=== PATIENT | male | born 1940 | race Caucasian/White ===

== ENCOUNTER → 2021-04-17 | Day surgery (SDC) | payer MEDICARE, OTHER ==
[~2021-04-17] MED LIST: ACETAMINOPHEN500 M1 PO; ACYCLOVIR400 MG PO; COLACE100 MG PO; FRANKINSENSE PO; MELATONIN10 M2 PO; MOTRIN600 MG PO; OXY-IR 5MG5 MG PO; TAMSULOSIN HCL0.4 MG PO; TRAMADOL HCL50 MG PO; VIT B 12 PO; VIT D3 PO; [UNRECOGNIZED DRUG - OTHER] PO
== END | disposition home or self-care (01) ==
LOC: FAS 08:36
DX: C18.9 Malignant neoplasm of colon, unspecified (principal); D12.8 Benign neoplasm of rectum; D12.3 Benign neoplasm of transverse colon; D12.6 Benign neoplasm of colon, unspecified; K57.30 Diverticulosis of large intestine without perforation or abscess without bleeding; K29.80 Duodenitis without bleeding; K64.8 Other hemorrhoids; K64.4 Residual hemorrhoidal skin tags; K44.9 Diaphragmatic hernia without obstruction or gangrene; D50.9 Iron deficiency anemia, unspecified; M19.90 Unspecified osteoarthritis, unspecified site; G47.00 Insomnia, unspecified; F17.210 Nicotine dependence, cigarettes, uncomplicated; Z85.46 Personal history of malignant neoplasm of prostate; Z79.899 Other long term (current) drug therapy
CPT/HCPCS: 88305; J2704; J7120

== ENCOUNTER 2021-05-24 06:29 | Inpatient (IN) | payer MEDICARE, OTHER ==
[~2021-05-24] VITALS: Ht 180 cm; Wt 77.6 kg
[~2021-05-24 06:29] MED LIST changes: -ACETAMINOPHEN500 M1 PO; -COLACE100 MG PO; -FRANKINSENSE PO; -MOTRIN600 MG PO; -OXY-IR 5MG5 MG PO; -TRAMADOL HCL50 MG PO; -[UNRECOGNIZED DRUG - OTHER] PO
[2021-05-24] MEDS ORDERED: TRAMADOL HCL50 MG PO (06:57)
[2021-05-24] MEDS ORDERED: [UNRECOGNIZED DRUG - OTHER] PO (06:58)
[2021-05-24 07:23] LABS: HCT 41.4 % (42.0-52.0); HGB 13.6 g/dl (13.2-18.0); MCHC 32.9 g/dL (32.0-36.0); MCV 91.4 fL (78.0-100.0); MPV 9.1 fL (6.0-9.5); RBC 4.53 M/uL (4.70-6.00); RDW 20.3 % (11.5-14.0); WBC 9.3 K/uL (4.0-10.5)
[2021-05-24 07:45] LABS: ALBUMIN 3.9 g/dL (3.4-5.0); BILIRUBIN - TOTAL 0.6 mg/dL (0.2-1.0); BUN/CREAT RATIO (CALC) 14.7 RATIO; CREATININE 1.09 mg/dL (0.67-1.17); POTASSIUM 3.8 mmol/L (3.5-5.1); TOTAL PROTEIN 7.9 g/dL (6.4-8.2)
[2021-05-24 17:04] LABS: BILIRUBIN NEGATIVE (NEGATIVE); BLOOD 2+ Ery/uL (NEGATIVE); CLARITY CLEAR (CLEAR); COLOR YELLOW (YELLOW); GLUCOSE (U) NORMAL (NORMAL); LEUKOCYTES NEGATIVE Leu/uL (NEGATIVE); NITRITE NEGATIVE (NEGATIVE); PROTEIN NEGATIVE (NEGATIVE); UROBILINOGEN 0.2 mg/dL (0.2-1.0); pH 5.5 (5.0-9.0)
[2021-05-24 17:18] LABS: BACTERIA TRACE
[2021-05-25 04:24] LABS: BASOPHIL 0.1 % (0-2); EOSINOPHIL 0.1 % (0-7); HCT 37.1 % (42.0-52.0); HGB 12.3 g/dl (13.2-18.0); LYMPHOCYTE 8.1 % (15-48); MCH 30.1 pg (25.0-31.0); MCHC 33.2 g/dL (32.0-36.0); MCV 90.9 fL (78.0-100.0); MONOCYTE 8.9 % (0-12); MPV 9.4 fL (6.0-9.5); NEUTROPHIL 82.4 % (41-80); NRBC 0; PLT 225 K/uL (150-400); RBC 4.08 M/uL (4.70-6.00); RDW 20.1 % (11.5-14.0); WBC 14.4 K/uL (4.0-10.5)
[2021-05-25 04:52] LABS: ALBUMIN 2.9 g/dL (3.4-5.0); BILIRUBIN - TOTAL 0.3 mg/dL (0.2-1.0); BUN/CREAT RATIO (CALC) 12.7 RATIO; CREATININE 1.02 mg/dL (0.67-1.17); GLOBULIN (CALCULATION) 3.6 g/dL; MAGNESIUM 1.8 mg/dL (1.8-2.4); PHOSPHORUS 3.2 mg/dL (2.6-4.7); POTASSIUM 4.6 mmol/L (3.5-5.1); TOTAL PROTEIN 6.5 g/dL (6.4-8.2)
[2021-05-26 06:27] LABS: BASOPHIL 0.2 % (0-2); EOSINOPHIL 1.2 % (0-7); HCT 35.6 % (42.0-52.0); HGB 11.7 g/dl (13.2-18.0); LYMPHOCYTE 9.5 % (15-48); MCH 30.5 pg (25.0-31.0); MCHC 32.9 g/dL (32.0-36.0); MCV 92.7 fL (78.0-100.0); MONOCYTE 9.8 % (0-12); MPV 9.5 fL (6.0-9.5); NEUTROPHIL 78.9 % (41-80); NRBC 0; PLT 222 K/uL (150-400); RBC 3.84 M/uL (4.70-6.00); RDW 19.9 % (11.5-14.0); WBC 12.1 K/uL (4.0-10.5)
[2021-05-26 06:49] LABS: BUN/CREAT RATIO (CALC) 11.5 RATIO; CREATININE 0.87 mg/dL (0.67-1.17); POTASSIUM 4.4 mmol/L (3.5-5.1)
--- NOTE | 2021-05-26 13:53 | NUR ---
05/26/21 Mr. Mora lives at home with his spouse. She is reported to have a dx of Alzheimer's. Mr. Mora has a rw. Mr. Mora is unsure if he would like to have PT through home. Will monitor his progress and meet with patient again prior to discharge. Patient will not need wound care following discharge per Dr. Baxter.
[2021-05-27 04:35] LABS: BASOPHIL 0.3 % (0-2); EOSINOPHIL 1.8 % (0-7); HCT 38.2 % (42.0-52.0); HGB 12.8 g/dl (13.2-18.0); LYMPHOCYTE 6.9 % (15-48); MCH 30.3 pg (25.0-31.0); MCHC 33.5 g/dL (32.0-36.0); MCV 90.3 fL (78.0-100.0); MONOCYTE 7.8 % (0-12); MPV 9.5 fL (6.0-9.5); NEUTROPHIL 82.7 % (41-80); NRBC 0; PLT 236 K/uL (150-400); RBC 4.23 M/uL (4.70-6.00); RDW 19.1 % (11.5-14.0)
[2021-05-27 05:00] LABS: BUN/CREAT RATIO (CALC) 11.3 RATIO; CREATININE 0.71 mg/dL (0.67-1.17); MAGNESIUM 1.8 mg/dL (1.8-2.4); POTASSIUM 3.8 mmol/L (3.5-5.1)
[2021-05-27] MEDS ORDERED: ACETAMINOPHEN500 M1 PO (12:35)
[2021-05-27] MEDS ORDERED: MOTRIN600 MG PO (12:35)
[2021-05-27] MEDS ORDERED: OXY-IR 5MG5 MG PO (12:35)
[2021-05-27] MEDS ORDERED: COLACE100 MG PO (12:35)
[2021-06-28] MEDS ORDERED: [UNRECOGNIZED DRUG - OTHER] PO (09:32)
[2021-06-28] MEDS ORDERED: FRANKINSENSE PO (09:33)
[2021-06-28] MEDS ORDERED: ACETAMINOPHEN500 M1 PO (12:52)
[2021-06-28] MEDS ORDERED: MOTRIN600 MG PO (12:52)
[2021-06-28] MEDS ORDERED: OXY-IR 5MG5 MG PO (12:52)
== END 2021-05-27 14:45 | disposition home or self-care (01) | DRG 330 ==
LOC: FSDC 06:29 → FTCU 06:29 → FMS 07:30 → FTCU 12:26
PROVIDERS: Internal Medicine; ADMIT Student in an Organized Health Care Education/Training Program
PROC: 0DBF0ZZ Excision of Right Large Intestine, Open Approach (ICD-10-PCS; principal; 2021-05-24 07:30)
PROC: 0DBW4ZX Excision of Peritoneum, Percutaneous Endoscopic Approach, Diagnostic (ICD-10-PCS; 2021-05-24 07:30)
DX: C18.0 Malignant neoplasm of cecum (principal); Q43.8 Other specified congenital malformations of intestine; C78.6 Secondary malignant neoplasm of retroperitoneum and peritoneum; K63.5 Polyp of colon; B00.9 Herpesviral infection, unspecified; F17.200 Nicotine dependence, unspecified, uncomplicated; Z20.822 Contact with and (suspected) exposure to COVID-19; N40.0 Benign prostatic hyperplasia without lower urinary tract symptoms; D50.9 Iron deficiency anemia, unspecified; E55.9 Vitamin D deficiency, unspecified; G47.00 Insomnia, unspecified; M19.90 Unspecified osteoarthritis, unspecified site; Z85.46 Personal history of malignant neoplasm of prostate; Z92.3 Personal history of irradiation; Z79.899 Other long term (current) drug therapy; Z98.890 Other specified postprocedural states; Z98.1 Arthrodesis status
CPT/HCPCS: 36415; 80048; 80053; 81001; 83735; 84100; 85025; 86850; 86900; 86901; 88305; 88341; 88342; 94010; 94640; 97162; 97530-GP; J0690; J1170; J1650; J2250; J2405; J2704; J2710; J3010; J7120; U0002

== ENCOUNTER → 2021-06-28 | Day surgery (SDC) | payer MEDICARE, OTHER ==
[~2021-06-28] VITALS: Ht 180.3 cm; Wt 75.3 kg
[~2021-06-28] MED LIST changes: +ACETAMINOPHEN500 M1 PO; +COLACE100 MG PO; +FRANKINSENSE PO; +MOTRIN600 MG PO; +OXY-IR 5MG5 MG PO; +TRAMADOL HCL50 MG PO; +[UNRECOGNIZED DRUG - OTHER] PO
== END | disposition home or self-care (01) ==
LOC: FAS 08:57
DX: C18.2 Malignant neoplasm of ascending colon (principal); G89.18 Other acute postprocedural pain; K22.9 Disease of esophagus, unspecified; D50.9 Iron deficiency anemia, unspecified; C61 Malignant neoplasm of prostate; D12.8 Benign neoplasm of rectum; F17.210 Nicotine dependence, cigarettes, uncomplicated; Z79.899 Other long term (current) drug therapy; Z90.49 Acquired absence of other specified parts of digestive tract
CPT/HCPCS: 71045; 76000; 77001; C1788; J0690; J1644; J2405; J2704; J3010; J7120